=== PATIENT | female | born 1995 | race Hispanic/Latino ===

== ENCOUNTER 2017-07-05 21:01 | Emergency (ER) | payer SELFPAY ==
[2017-07-05 21:52] LABS: #Basophils 0.1 thou/uL (0.0-0.2); #Eosinphils 0.1 thou/uL (0.0-0.7); #Lymphocytes 3.7 thou/uL (1.20-3.40); #Monocytes 1.2 thou/uL (0.11-0.59); #Neutrophils 6.4 thou/uL (1.40-6.50); %Basophils 0.5 % (0.0-1.0); %Eosinophils 1.1 % (0.0-10.0); %Lymphocytes 32.5 % (21.0-51.0); %Monocytes 10.5 % (0.0-10.0); %Neutrophils 55.5 % (42.0-75.0); Hemoglobin 12.7 g/dL (12.0-16.0); Mean Corpuscular HGB CONC 33.3 g/dL (32.0-36.0); Mean Corpuscular Hemoglobin 29.9 pg (27.0-31.0); Mean Corpuscular Volume 89.8 fl (81.0-99.0); Mean Platelet Volume 9.5 fL (7.4-10.4); Platelet Count 226 thou/uL (130-400); Red Blood Cell (RBC) Count 4.24 mill/uL (4.20-5.40); White Blood Cell (WBC) Count 11.5 thou/uL (4.8-10.8)
--- NOTE | 2017-07-05 22:02 | CT ---
CT BRAIN PERFORMED WITHOUT CONTRAST ENHANCEMENT: HISTORY: Headache. FINDINGS: The ventricular and cisternal system is within normal limits. There are no signs of intracerebral he morrhage or extraaxial fluid collections. The mastoid air cells and visualized sinuses are clear. IMPRESSION: No acute intracranial abnormalities. POS: [facility]
[2017-07-05] MEDS ORDERED: Metoclopramide HCl 10 MG/2 ML VIAL ONE (22:03)
[2017-07-05] MEDS ORDERED: diphenhydrAMINE 50 MG/ML VIAL ONE (22:03)
[2017-07-05] MEDS ORDERED: Ketorolac Tromethamine 30 MG/ML VIAL ONE (22:03)
[2017-07-05] MEDS ORDERED: Ondansetron ODT 4 MG TAB ONE (22:03)
[2017-07-05 22:14] LABS: ALT (SGPT) 12 U/L (8-55); AST (SGOT) 15 U/L (5-34); Albumin 4.4 g/dL (3.5-5.0); Alkaline Phosphatase 70 U/L (40-150); Anion Gap 11 mmol/L (10-20); BUN (Urea Nitrogen) 7 mg/dL (7.0-18.7); Bilirubin, Total 0.3 mg/dL (0.2-1.2); Calc. Creatinine Clearance 0 mL/min (70-130); Calcium 9.4 mg/dL (7.8-10.44); Carbon Dioxide 25 mmol/L (22-29); Chloride 108 mmol/L (98-107); Estimated GFR-MDRD Greater than 90; Globulin 3.2 g/dL (2.4-3.5); Glucose 86 mg/dL (70-105); Potassium 3.7 mmol/L (3.5-5.1); Protein, Total 7.6 g/dL (6.0-8.3); Sodium 140 mmol/L (136-145)
== END 2017-07-05 23:05 | disposition home or self-care (01) ==
LOC: ERS 21:01
DX: R51 Headache (principal)
CPT/HCPCS: 36415; 70450; 80053; 85025; 96365; 96375; J1200; J1885; J2765; Q0162

== ENCOUNTER 2018-05-08 10:07 | Inpatient (IN) | payer MEDICAID, OTHER, SELFPAY ==
[2018-05-08] MEDS ORDERED: Misoprostol 200 MCG TAB PR PRN (21:53)
[2018-05-08] MEDS ORDERED: Carboprost 250 MCG/ML AMP IM PRN (21:53)
[2018-05-08] MEDS ORDERED: Butorphanol Tartrate 1 MG/ML VIAL SLOW IVP PRN (21:53)
[2018-05-08] MEDS ORDERED: NS / Oxytocin 40 units/1000ml 1,000 ML IV PRN (21:53)
[2018-05-08] MEDS ORDERED: Methylergonovine 0.2 MG/ML VIAL IM PRN (21:53)
[2018-05-08] MEDS ORDERED: Lidocaine 1% (PF) 30 ML VIAL SC PRN (21:53)
[2018-05-08] MEDS ORDERED: Diphenoxylate HCl/Atropine Tablet PO PRN (21:53)
[2018-05-08] MEDS ORDERED: Ondansetron PF 4 MG/2 ML Vial IVP PRN (21:53)
[2018-05-08] MEDS ORDERED: HYDROcodone/Acetaminophen 5/325 mg Tablet PO PRN (21:53)
[2018-05-08] MEDS ORDERED: Ibuprofen 800 MG TAB PO PRN (21:53)
[2018-05-08] MEDS ORDERED: NS w/ Oxytocin 10 units 500 ML IV SCH ×2 (22:00)
[2018-05-08 22:12] VITALS: BMI 29.8
[2018-05-08] MEDS: Lactated Ringer's 1,000 ML IV SCH (22:22)
[2018-05-08 22:24] LABS: Hemoglobin 10.8 g/dL (12.0-16.0); Mean Corpuscular HGB CONC 32.2 g/dL (32.0-36.0); Mean Corpuscular Hemoglobin 30.7 pg (27.0-31.0); Mean Corpuscular Volume 95.5 fL (78.0-98.0); Mean Platelet Volume 10.2 fL (7.4-10.4); Platelet Count 138 thou/uL (130-400); RBC Distribution Width 12.2 % (11.5-14.5); Red Blood Cell (RBC) Count 3.52 mill/uL (4.20-5.40); White Blood Cell (WBC) Count 11.9 thou/uL (4.8-10.8)
[2018-05-08] MEDS: Misoprostol 100 MCG TAB PO SCH (22:35)
[2018-05-08 23:03] LABS: Syphilis Antibody Nonreactive (Nonreactive); Syphilis Antibody Index 0.07 S/CO (<1.00 Non-Reactive)
[2018-05-08 23:31] LABS: HBSAg Index 0.27 S/CO (0-0.99); Hep B Surf Ag Non-Reactive S/CO (NonReactive)
[2018-05-09 01:16] LABS: Glucose 89 mg/dL (70-105)
[2018-05-09] MEDS: Misoprostol 100 MCG TAB PO SCH ×2 (05:03→22:49)
[2018-05-09] MEDS ORDERED: Fentanyl 4 mcg/Bup 0.1% Cadd 100 ML ONE (07:15)
[2018-05-09] MEDS: Lactated Ringer's 1,000 ML IV SCH ×2 (07:55→14:15)
[2018-05-09] MEDS ORDERED: Naloxone HCl 0.4 mg/ml Vial IVP PRN ×2 (07:57)
[2018-05-09] MEDS ORDERED: Promethazine HCl 25 MG/ML VIAL IM PRN (07:57)
[2018-05-09] MEDS ORDERED: Eucerin (Mineral Oil/Petrolatum,White) 30 gm Jar TOP PRN (07:57)
[2018-05-09] MEDS ORDERED: Ondansetron PF 4 MG/2 ML Vial IVP PRN ×2 (07:57→18:21)
[2018-05-09] MEDS ORDERED: Lactated Ringer's 500 ML IV PRN (07:57)
[2018-05-09] MEDS ORDERED: ePHEDrine/0.9% NaCl/PF SYRINGE 50 mg/10 ml SLOW IVP PRN (07:57)
[2018-05-09] MEDS ORDERED: diphenhydrAMINE 50 MG/ML VIAL IVP PRN (07:57)
[2018-05-09] MEDS ORDERED: Acetaminophen 325 MG TAB PO PRN (07:57)
[2018-05-09] MEDS ORDERED: Fentanyl 4 mcg/Bupivacaine 0.1% Cassette 100 ML EPIDURAL SCH (08:00)
[2018-05-09] MEDS ORDERED: Communication Order-Pharmacy FS SCH (08:00)
[2018-05-09] MEDS ORDERED: Bupivacaine/Epinephrine 0.25% 30 ML VIAL ONE (18:00)
[2018-05-09] MEDS ORDERED: HYDROcodone/Acetaminophen 5/325 mg Tablet PO PRN ×2 (18:21)
[2018-05-09] MEDS ORDERED: Milk Of Magnesia 30 ML UDCUP PO PRN (18:21)
[2018-05-09] MEDS ORDERED: Benzocaine/Menthol 20-0.5% 60 ML CAN TOP PRN (18:21)
[2018-05-09] MEDS ORDERED: NS / Oxytocin 40 units/1000ml 1,000 ML IV SCH (18:21)
[2018-05-09] MEDS ORDERED: Bisacodyl 10 MG SUPP PR PRN (18:21)
[2018-05-09] MEDS ORDERED: diphenhydrAMINE 25 MG CAP PO PRN (18:21)
[2018-05-09] MEDS ORDERED: Lanolin Ointment 7 GM TUBE TOP PRN (18:21)
[2018-05-09] MEDS: Ibuprofen 800 MG TAB PO SCH (21:25)
[2018-05-09] MEDS: Docusate Calcium (SURFAK) 240 MG CAP PO SCH (21:26)
[2018-05-10] MEDS: Ibuprofen 800 MG TAB PO SCH ×3 (05:35→21:40)
[2018-05-10 08:52] LABS: Hemoglobin 10.9 g/dL (12.0-16.0); Mean Corpuscular HGB CONC 32.9 g/dL (32.0-36.0); Mean Corpuscular Hemoglobin 31.3 pg (27.0-31.0); Mean Corpuscular Volume 95.2 fL (78.0-98.0); Platelet Count 120 thou/uL (130-400); RBC Distribution Width 12.3 % (11.5-14.5); Red Blood Cell (RBC) Count 3.47 mill/uL (4.20-5.40); White Blood Cell (WBC) Count 18.5 thou/uL (4.8-10.8)
[2018-05-10] MEDS: Ferrous Sulfate 325 MG TAB PO SCH ×2 (09:24→14:27)
[2018-05-10] MEDS: Prenatal Vitamin 1 TAB PO SCH (10:24)
[2018-05-10] MEDS: Docusate Calcium (SURFAK) 240 MG CAP PO SCH ×2 (10:24→13:53)
[2018-05-11] MEDS: Docusate Calcium (SURFAK) 240 MG CAP PO SCH ×2 (00:50→08:57)
[2018-05-11] MEDS: Ibuprofen 800 MG TAB PO SCH (05:56)
[2018-05-11 07:51] VITALS: BP 115/66; TEMP 98.1
[2018-05-11] MEDS: Prenatal Vitamin 1 TAB PO SCH (08:57)
[2018-05-11] MEDS: Ferrous Sulfate 325 MG TAB PO SCH (08:58)
== END 2018-05-11 13:30 | disposition home or self-care (01) | DRG 807 ==
LOC: L&D 21:01 → 3SW 05-09 19:43
PROVIDERS: ADMIT Family Medicine; ATTEND Family Medicine
PROC: 10E0XZZ Delivery of Products of Conception, External Approach (ICD-10-PCS; principal; 2018-05-09)
PROC: 0HQ9XZZ Repair Perineum Skin, External Approach (ICD-10-PCS; 2018-05-09)
PROC: 0UQMXZZ Repair Vulva, External Approach (ICD-10-PCS; 2018-05-09)
PROC: 3E0P7VZ Introduction of Hormone into Female Reproductive, Via Natural or Artificial Opening (ICD-10-PCS; 2018-05-09)
DX: O24.420 Gestational diabetes mellitus in childbirth, diet controlled (principal); Z37.0 Single live birth; O70.0 First degree perineal laceration during delivery; Z3A.39 39 weeks gestation of pregnancy; O71.82 Other specified trauma to perineum and vulva; O76 Abnormality in fetal heart rate and rhythm complicating labor and delivery; O77.0 Labor and delivery complicated by meconium in amniotic fluid; O26.893 Other specified pregnancy related conditions, third trimester; Z67.21 Type B blood, Rh negative; Z88.0 Allergy status to penicillin
CPT/HCPCS: 36415; 36416; 51702; 82947; 85027; 85461; 86780; 86850; 86900; 86901; 87340; 90384; 96372; J2001

== ENCOUNTER 2018-11-23 00:45 | Emergency (ER) | payer MEDICAID, SELFPAY | END 2018-11-23 01:15 | disposition home or self-care (01) | LOC: ERS 00:45 | DX: R20.2 Paresthesia of skin (principal) | CPT/HCPCS: 99283 ==